=== PATIENT | female | born 1980 ===

== ENCOUNTER → 2018-09-10 13:15 | Outpatient (REF) | payer OTHER, SELFPAY | LOC: LAB 13:15 | PROVIDERS: Visit Provider Physician Assistant | DX: L40.4 Guttate psoriasis (principal); L85.3 Xerosis cutis; L40.0 Psoriasis vulgaris; D22.5 Melanocytic nevi of trunk; L81.4 Other melanin hyperpigmentation | CPT/HCPCS: 87070; 87077; 87147; 87205 ==